=== PATIENT | female | born 1935 | race Caucasian/White ===

== ENCOUNTER 2023-11-12 08:20 | Emergency (ER) | payer MEDICARE, BC, SELFPAY ==
[2023-11-12] VITALS (8 sets, daily range): BP systolic 84–115; BP diastolic 45–80; BMI 25.0
[2023-11-12 08:31] LABS: Glucose - Point of Care 125 mg/dl (70-99)
--- NOTE | 2023-11-12 08:48 | ED.GENMED ---
History of Present Illness
General
Chief Complaint: Fainting/Passed Out
Source: patient, spouse, family and ambulance crew
Exam Limitations: dementia
Time Seen by Provider: 11/12/23 08:22
Nursing documentation reviewed up to this point in time: agreed with
History of Present Illness
History of Present Illness:
88 yo female from home, within past hour states she was washing dishes, he was in living room watching TV when he heard her fall. Arrived immediately afterward, she was unresponsive until he started wiping her face with cold rag. She sat
there for 15 minutes, vomited once and he helped her up, walked to living room 'walking like a drunk,' where she sat until EMS arrived. They report BP 90/40, then standing 70/
Pt is pleasant, alert, poor historian. Denies CP, SOB, abd. pain. She does not know why she is here.
reports she has had a cough since yesterday
Past History
Past History
ED Past Medical History: Hypercholesterolemia and Psychiatric (Dementia)
Social History
Tobacco: Non-smoker
Alcohol: None
Personal:
Living: with family
Review of Systems
Review of Systems
Allergies reviewed?: Yes
All Other Systems: ROS reviewed and negative except as documented in HPI and ROS
Constitutional: Denies fever
EENT: Denies sore throat
Respiratory: Reports cough; Denies trouble breathing
Cardiac: Reports syncope; Denies chest pain
ABD/GI: Reports vomiting (Vomited once); Denies abdominal pain, diarrhea, bloody stools or black stools
: Reports incontinence
Musculoskeletal: Denies edema, neck pain or back pain
Skin: Reports no symptoms
Neurological: Reports no symptoms
Phy Exam
Physical Exam
Physical Exam:
GENERAL: No acute distress. Alert, oriented to name, address, not place or year
CONSTITUTIONAL: Afebrile.
EYES: PERRL, conjunctivae normal
Neck: Supple
ENMT: moist mucus membranes, Pharynx nl
RESPIRATORY: Regular respirations, nonlabored, lungs clear. Pulse ox 100% RA
CARDIOVASCULAR: Regular rate and rhythm, no murmurs, no rubs.
GI: Soft, nontender, normal BS
MUSCULOSKELETAL: Moves with ease. Well perfused. No edema
SKIN: Warm, dry, pink
PSYCH: Normal mood and affect. Well kept, interactive and pleasantly demented
NEUROLOGIC: Awake, alert and oriented x 2. Speech clear. Follows commands, strength equal throughout. No focal neurological deficits
Course
Orders/Labs/Results
Orders:
Orders
11/12/23 08:37
EKG- Treatment ONCE
11/12/23 08:47
Electrocardiogram (*1) Urgent
Reason for Study: Syncope
EKG- Treatment ONCE
11/12/23 08:53
COVID-19 Antigen Urgent
Source: Nasal Swab
Complete Blood Count/With Diff Urgent
Urinalysis Reflex To Culture Urgent
Date Specimen was Collected: 11/12/23
Time Specimen was Collected: 08:37
Urine Microscopic Reflex Cult Urgent
Influenza A+B Rapid Molecular Urgent
BELINDA Source: Nasal Swab
Specimen Description:
Urine Culture Urgent
BELINDA Source: U
Specimen Description:
Date Specimen was Collected: 11/12/23
Time Specimen was Collected: 08:37
11/12/23 09:10
CT Head W/o Iv Contrast Urgent
Comment:
Reason For Exam: syncopal episode
11/12/23 09:37
Comprehensive Metabolic Panel Urgent
Troponin I Urgent
11/12/23 10:33
Cephalexin Monohydrate [Keflex] 500 mg PO NOW STA
Abnormal Lab Results
11/12/23 11/12/23 11/12/23
08:27 08:53 09:37
MCHC 32.7 L g/dL
(33.0-37.0)
MPV 11.3 H fL
(7.4-10.4)
Absolute Lymphs (auto) 0.6 L 10^3/uL
(1.2-3.4)
Neutrophils % 82.6 H %
(42.2-75.2)
Lymphocytes % 7.6 L %
(20.5-51.1)
Glucose 112 H mg/dl
(70-99)
Total Protein 5.8 L g/dl
(6.3-8.2)
Ur Occult Blood Reflex Trace A
(Negative)
Urine Nitrite (Reflex) Positive A
(Negative)
Leukocyte Esterase Rfl 2+ A
(Negative)
Urine WBC (Reflex) >100 A /HPF
(0-5)
Urine Bacteria (Reflex) Many A
(Negative)
POC Glucose 125 H mg/dl
(70-99)
11/12/23 08:53
11/12/23 09:37
Vital Signs
Initial and Last Documented VS:
Initial Vital Signs
BP
90/71
11/12/23 08:25
Last Documented Vital Signs
Temp Pulse Resp BP Pulse Ox
98.8 F 89 16 110/54 98
11/12/23 11:05 11/12/23 11:05 11/12/23 11:05 11/12/23 11:00 11/12/23 11:28
Security Door Installer consulted with Physician
Security Door Installer consulted with physician?: Yes
Name of Physician Consulted: Graham
MDM/Problems Addressed
Differential Diagnosis Includes:
Dehydration, UTI
MDM/Problems Addressed:
88 yo female from home, within past hour states she was washing dishes, he was in living room watching TV when he heard her fall. Arrived immediately afterward, she was unresponsive until he started wiping her face with cold rag. She sat
there for 15 minutes, vomited once and he helped her up, walked to living room 'walking like a drunk,' where she sat until EMS arrived. They report BP 90/40, then standing 70/
Pt is pleasant, alert, poor historian. Denies CP, SOB, abd. pain. She does not know why she is here. reports she has had a cough since yesterday
Neuro exam unremarkable, BP on arrival 90/71
POC glucose 125
EKG: NSR
10:31 AM
CBC with no clinically significant abnormality
CMP normal urine positive for urinary tract infection
Head CT shows no acute abnormality.
U/A positive for infection
Pt is drinking well.
Family in room, comfortable taking pt home.
Rx for Keflex sent to pt pharmacy
Chronic conditions affecting care: Psychiatric illness (dementia)
*Pulse Oximetry
Patient hypoxic: no
*EKG
EKG Intrepretation Date: 11/12/23
Interpretation: normal
Rate: normal
Rhythm: sinus
[place]: normal axis
Interval: normal interval
QRS Pattern: normal QRS
Ischemia: no ischemia
*Machine Bobbin Winder Interpretation
Rate: normal
Interpretation: normal
Rhythm: sinus
*Critical Care Note
Total Time (30-74mins, 75-104mins- exclusive of procedures): Not Applicable
ED Attending Note
-
Portions of this chart may have been created with voice recognition software.� Occasional wrong word or��sound alike� substitutions may have occurred due to the inherent limitations of voice recognition software.
Discharge Plan
Departure
Patient Disposition: Home (Routine Discharge)
Date of Disposition: 11/12/23
Time of Disposition: 10:36
Patient with high blood pressure during this ER visit?: No
Condition: Good
Discharge Problem:
Acute UTI, Syncope, non cardiac
Instructions: Syncope (Fainting) (DC), Urinary Tract Infection, Adult ED
Prescriptions:
New
cephalexin 500 mg capsule
500 mg PO BID 7 Days Qty: 14 0RF
No Action
atorvastatin 20 mg Tablet
20 mg PO HS
donepezil 10 mg Tablet
10 mg PO HS
levothyroxine 50 mcg Tablet
50 mcg PO DAILY
ergocalciferol (vitamin D2) 1,250 mcg (50,000 unit) Capsule
1,250 mcg PO FR@0800
cyanocobalamin (vitamin B-12)
1 tab PO DAILY
Referrals:
Jazzmine Bella, [Family Provider] - Call in 1-3 days for appt
Activity Restrictions/Additional Instructions:
As we discussed, you have a urinary tract infection. I sent a prescription to your pharmacy for Keflex antibiotic started this evening and you are given a dose here today.
Call your doctors office and make an appoint for 7 to 10 days to have your urine rechecked.
Return here immediately for vomiting, fever, abdominal pain or feeling sicker in any way.
Interventions
Interventions:
*Risk Screen - Suicide Last Done: 11/12/23 11:05
*General Assessment Last Done: 11/12/23 11:00
*Neglect/Abuse Screening Last Done: 11/12/23 11:05
ED- Fall Risk Assessment Last Done: 11/12/23 11:05
*ED COVID-19 Vaccine History Last Done: 11/12/23 11:38
*Nursing Disposition Last Done: 11/12/23 11:05
ED- Cardiac Assessment Last Done: 11/12/23 09:15
ED- Neurological Assessment Last Done: 11/12/23 09:15
Discharge Date and Time
Discharge Date/Time: 11/12/23 11:05
Print Language: YI
[2023-11-12 09:13] LABS: Urine Albumin Trace (Neg - Trace); Urine Bilirubin Negative (Negative); Urine Character Clear (Clear); Urine Color Yellow; Urine Glucose Negative (Negative); Urine Ketone Negative (Negative); Urine Leukocyte 2+ (Negative); Urine Nitrite Positive (Negative); Urine Occult Blood Trace (Negative); Urine Specific Gravity 1.015 (<1.030); Urine Urobilinogen Negative (Neg - 1+)
[2023-11-12 09:16] LABS: % Basophils 0.8 % (0-2); % Eosinophils 0.3 % (0-6); % Immature Granulocytes 0.5 % (0-0.5); % Lymphocytes 7.6 % (20.5-51.1); % Monocytes 8.2 % (1.7-9.3); % Neutrophils 82.6 % (42.2-75.2); Absolute Basophils 0.1 10^3/uL (0-0.2); Absolute Lymphocytes 0.6 10^3/uL (1.2-3.4); Absolute Monocytes 0.6 10^3/uL (0.1-0.6); Absolute Neutrophils 6.5 10^3/uL (1.4-6.5); Hematocrit 38.5 % (37.0-47.0); Hemoglobin 12.6 g/dL (12.0-16.0); Mean Corp Hgb Conc. 32.7 g/dL (33.0-37.0); Mean Corpuscular Hgb 29.4 pg (27.0-31.0); Mean Corpuscular Volume 89.7 fL (81.0-99.0); Mean Platelet Volume 11.3 fL (7.4-10.4); Nucleated Red Blood Cells % 0 %; Platelet Count 162 10^3/uL (130-400); Red Blood Cell Count 4.29 10^6/uL (4.20-5.40); Red Cell Dist. Width 13.6 % (11.5-14.5); White Blood Cell Count 7.8 10^3/uL (4.8-10.8)
[2023-11-12 09:26] LABS: Urine Bacteria Many (Negative); Urine Mucus Few; Urine Red Blood Cell 0-2 /HPF (0-2); Urine Squamous Cell 0-2 /LPF (Few); Urine Urothelial Cell 0-2 /LPF (FEW); Urine White Cell >100 /HPF (0-5)
[2023-11-12 09:37] LABS: COVID-19 Antigen Negative (Negative)
[2023-11-12 10:09] LABS: ALT (SGPT) 28 U/L (0-35); AST (SGOT) 31 U/L (14-36); Albumin 3.5 g/dl (3.5-5.0); Alkaline Phosphatase 78 U/L (38-126); Blood Urea Nitrogen 11 mg/dl (7-17); Calcium 8.8 mg/dl (8.4-10.2); Carbon Dioxide 22 mmol/L (22-30); Chloride 106 mmol/L (98-107); Estimated Creatinine Clearance 44 ml/min; Glucose 112 mg/dl (70-99); Potassium 4.1 mmol/L (3.5-5.1); Sodium 136 mmol/L (135-145); Total Bilirubin 0.9 mg/dl (0.2-1.3); Total Protein 5.8 g/dl (6.3-8.2); eGFR > 60.00
[2023-11-12 10:19] LABS: Troponin I < 0.012 ng/ml
[2023-11-12] MEDS: KEFLEX 500 MG PO (11:14)
== END 2023-11-12 11:05 | disposition home or self-care (01) ==
LOC: EMR 08:20
PROVIDERS: Registered Nurse; EMERGENCY PHYSICIAN Student in an Organized Health Care Education/Training Program; FAMILY PHYSICIAN Internal Medicine
DX: R55 Syncope and collapse (principal); E78.00 Pure hypercholesterolemia, unspecified; F03.90 Unspecified dementia, unspecified severity, without behavioral disturbance, psychotic disturbance, mood disturbance, and anxiety; N39.0 Urinary tract infection, site not specified
CPT/HCPCS: 99284; 70450; 80053; 81003; 81015; 82962; 84484; 85025; 87086; 87502; 87811; 93005

== ENCOUNTER 2024-11-06 21:20 | Emergency (ER) | payer MEDICARE, BC, SELFPAY ==
[2024-11-06 21:25] VITALS: BP 107/67
[2024-11-06 21:27] VITALS: BP 107/67
[2024-11-06 21:44] LABS: % Eosinophils 2.2 % (0-6); % Immature Granulocytes 0.4 % (0-0.5); % Monocytes 6.7 % (1.7-9.3); % Neutrophils 71.7 % (42.2-75.2); Absolute Basophils 0.1 10^3/uL (0-0.2); Absolute Eosinophils 0.2 10^3/uL (0-0.7); Absolute Lymphocytes 1.3 10^3/uL (1.2-3.4); Absolute Monocytes 0.5 10^3/uL (0.1-0.6); Absolute Neutrophils 5.2 10^3/uL (1.4-6.5); Hematocrit 35.9 % (37.0-47.0); Mean Corp Hgb Conc. 33.4 g/dL (33.0-37.0); Mean Corpuscular Hgb 29.4 pg (27.0-31.0); Mean Platelet Volume 10.8 fL (7.4-10.4); Nucleated Red Blood Cells % 0 %; Platelet Count 168 10^3/uL (130-400); Red Blood Cell Count 4.08 10^6/uL (4.20-5.40); Red Cell Dist. Width 13.4 % (11.5-14.5); White Blood Cell Count 7.2 10^3/uL (4.8-10.8)
[2024-11-06 22:00] VITALS: BP 103/63
[2024-11-06 22:10] LABS: ALT (SGPT) 21 U/L (0-35); AST (SGOT) 21 U/L (14-36); Albumin 4.1 g/dl (3.5-5.0); Alkaline Phosphatase 84 U/L (38-126); Blood Urea Nitrogen 15 mg/dl (7-17); Calcium 9.7 mg/dl (8.4-10.2); Carbon Dioxide 24 mmol/L (22-30); Chloride 108 mmol/L (98-107); Estimated Creatinine Clearance 47 ml/min; Glucose 92 mg/dl (70-99); Potassium 4.5 mmol/L (3.5-5.1); Sodium 140 mmol/L (135-145); Total Bilirubin 0.5 mg/dl (0.2-1.3); Total Protein 6.2 g/dl (6.3-8.2); eGFR > 60.00
[2024-11-06 22:17] LABS: Urine Albumin Negative (Neg - Trace); Urine Bilirubin Negative (Negative); Urine Character Clear (Clear); Urine Color Yellow; Urine Glucose Negative (Negative); Urine Ketone Negative (Negative); Urine Leukocyte 3+ (Negative); Urine Nitrite Negative (Negative); Urine Occult Blood Negative (Negative); Urine Urobilinogen Negative (Neg - 1+)
[2024-11-06 22:24] LABS: Urine Bacteria Many (Negative); Urine Red Blood Cell 0-2 /HPF (0-2); Urine White Cell 70-80 /HPF (0-5)
[2024-11-06 23:18] VITALS: BP 101/59
[2024-11-06] MEDS: MONUROL 3 GM PO (23:18)
--- NOTE | 2024-11-07 01:31 | ED.GENMED ---
History of Present Illness
General
Chief Complaint: Weakness
Source: patient, spouse and family
Exam Limitations: none
Time Seen by Provider: 11/06/24 21:25
Nursing documentation reviewed up to this point in time: agreed with
History of Present Illness
History of Present Illness:
Patients noted unsteady gait on pt after dinner tonight Brought to ED by family for eval. SHe denies fever/chills, n/v/d. No recent illness. Denies and chest pain, abdominal pain, SOB, cough. Denies headache or dizziness.
Past History
Past History
ED Past Medical History: Hypercholesterolemia and Psychiatric (Dementia)
Social History
Tobacco: Non-smoker
Alcohol: None
Personal:
Living: with family
Review of Systems
Review of Systems
Allergies reviewed?: Yes
All Other Systems: ROS reviewed and negative except as documented in HPI and ROS
Constitutional: Reports no symptoms
EENT: Reports no symptoms
Respiratory: Reports no symptoms
Cardiac: Reports no symptoms
ABD/GI: Reports no symptoms
: Reports no symptoms
Musculoskeletal: Reports no symptoms
Skin: Reports no symptoms
Neurological: Reports other (unsteady gait)
Psychiatric: Reports no symptoms
Phy Exam
General Physical Exam
General Presentation: well appearing and no apparent distress
General age: appears stated age
General Skin: warm and dry
General Habitus: normal
General Mental: alert
Cardiovascular Exam
Cardiovascular Exam: regular rate/rhythm and no edema
Pulmonary Exam
Pulmonary Exam: lungs clear and no respiratory distress
Gastrointestinal Exam
Gastrointestinal Exam: non tender and soft
Neurological Exam
Neurological Exam: alert, oriented x3, CN II-XII intact, no motor deficits, no sensory deficits and speech normal
Musculoskeletal Exam
Musculoskeletal Exam: full ROM, no edema and neuro vasc intact
Skin Exam
Skin Exam: normal color, warm/dry and no rash
Psychiatric Exam
Psychiatric Exam: normal mood/affect
Course
Orders/Labs/Results
Orders:
Orders
11/06/24 21:22
Electrocardiogram (*1) Urgent
Reason for Study: Tachycardia
EKG- Treatment ONCE
11/06/24 21:33
CMP [Comprehensive Metabolic Panel] Urgent
Complete Blood Count/With Diff Urgent
11/06/24 21:58
Urinalysis Reflex To Culture Urgent
Date Specimen was Collected: 11/06/24
Time Specimen was Collected: 21:48
Urine Microscopic Reflex Cult Urgent
Urine Culture Urgent
BELINDA Source: U
Specimen Description:
Date Specimen was Collected: 11/06/24
Time Specimen was Collected: 21:48
11/06/24 22:35
Fosfomycin [Monurol] 3 gm PO ONCE ONE
Abnormal Lab Results
11/06/24 11/06/24
21:33 21:58
RBC 4.08 L 10^6/uL
(4.20-5.40)
Hct 35.9 L %
(37.0-47.0)
MPV 10.8 H fL
(7.4-10.4)
Lymphocytes % 18.0 L %
(20.5-51.1)
Chloride 108 H mmol/L
(98-107)
Total Protein 6.2 L g/dl
(6.3-8.2)
Leukocyte Esterase Rfl 3+ A
(Negative)
Urine WBC (Reflex) 70-80 A /HPF
(0-5)
Urine Bacteria (Reflex) Many A
(Negative)
11/06/24 21:33
11/06/24 21:33
Vital Signs
Initial and Last Documented VS:
Initial Vital Signs
Temp
97.7 F
11/06/24 21:23
Last Documented Vital Signs
Temp Pulse Resp BP Pulse Ox
97.7 F 96 21 101/59 99
11/06/24 21:23 11/06/24 23:18 11/06/24 23:18 11/06/24 23:18 11/06/24 23:18
*Pulse Oximetry
Patient hypoxic: no
*Critical Care Note
Total Time (30-74mins, 75-104mins- exclusive of procedures): Not Applicable
Update Note
Update Note:
Patient to ED for report of unsteady gait. Moving all extremiteis equal strength bilaerally. AAO x3. Afebrile. Labs reviewed. UA reflecting UTI. Will treat with monural in ED tonight. She will follow up with PCP for repeat UA next week.
Family given intructions on s/s to return to ED and they are agreeable t plan
ED Attending Note
-
Portions of this chart may have been created with voice recognition software.� Occasional wrong word or��sound alike� substitutions may have occurred due to the inherent limitations of voice recognition software.
Discharge Plan
Departure
Patient Disposition: Home (Routine Discharge)
Date of Disposition: 11/06/24
Time of Disposition: 22:35
Patient with high blood pressure during this ER visit?: No
Condition: Good
Covid-19: Not Applicable
Discharge Problem:
UTI (urinary tract infection)
Instructions: Urinary tract infection in adults - ED discharge instructions
Prescriptions:
No Action
atorvastatin 20 mg Tablet
20 mg PO HS
donepezil 10 mg Tablet
10 mg PO HS
levothyroxine 50 mcg Tablet
50 mcg PO DAILY
ergocalciferol (vitamin D2) 1,250 mcg (50,000 unit) Capsule
1,250 mcg PO FR@0800
cyanocobalamin (vitamin B-12)
1 tab PO DAILY
cephalexin 500 mg capsule
500 mg PO BID 7 Days Qty: 14 0RF
Referrals:
Jazzmine Bella, [Family Provider] - (Follow up next week for repeat urinalysis)
Interventions
Interventions:
*Risk Screen - Suicide Last Done: 11/06/24 21:25
*General Assessment Last Done: 11/06/24 21:25
*Neglect/Abuse Screening Last Done: 11/06/24 21:25
*ED- Fall Risk Assessment Last Done: 11/06/24 21:25
*ED COVID-19 Vaccine History Last Done: 11/06/24 21:25
*Nursing Disposition Last Done: 11/06/24 23:20
ED- Cardiac Assessment Last Done: 11/06/24 23:25
ED- Neurological Assessment Last Done: 11/06/24 23:25
ED- Pulmonary Assessment Last Done: 11/06/24 23:25
Discharge Date and Time
Discharge Date/Time: 11/06/24 23:20
Print Language: LAO
== END 2024-11-06 23:20 | disposition home or self-care (01) ==
LOC: EMR 21:20
PROVIDERS: Nurse Practitioner; EMERGENCY PHYSICIAN Emergency Medicine; FAMILY PHYSICIAN Internal Medicine
DX: N39.0 Urinary tract infection, site not specified (principal); E78.00 Pure hypercholesterolemia, unspecified; F03.90 Unspecified dementia, unspecified severity, without behavioral disturbance, psychotic disturbance, mood disturbance, and anxiety
CPT/HCPCS: 99283; 80053; 81003; 81015; 85025; 87077; 87086; 93005